=== PATIENT | female | born 1965 | race Asian ===

== ENCOUNTER 2017-01-27 19:55 | Emergency (ER) | payer BC ==
[~2017-01-27] VITALS: Ht 157.5 cm; Wt 48.1 kg
[~2017-01-27 19:55] MED LIST: NKM
[2017-01-27] MEDS ORDERED: Surgicel 4in x 8in TOPIC ONE ×2 (20:41→20:45)
[2017-01-27] MEDS ORDERED: Lidocaine 2% 20mg/ml/Epi 0.005mg/ml 20ml vial ONE (20:42)
[2017-01-27] MEDS ORDERED: Lidocaine 1% 10mg/ml/Epi 0.005mg/ml 30ml vial INJ ONE (20:45)
[2017-01-27] MEDS ORDERED: Bacitracin Oint UD TOPIC ONE (21:32)
[2017-01-27 21:46] VITALS: BP 155/55
[2017-01-27 21:51] VITALS: BP 142/78
--- NOTE | 2017-01-27 22:33 | Emergency Room Report ---
History of Present Illness General Chief Complaint: Laceration Source: Medical Record Present Illness HPI 51-year-old female presents to ED status post laceration to left ring finger. States that she actually cut her finger today while cleaning dishes. Tetanus unknown. Notes excessive bleeding despite applying pressure. Denies any other injuries. Denies pain. No aggravating relieving factors. 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 Review of Systems All Other Systems: negative except mentioned in HPI Physical Exam Vital Signs Date Time Temp Pulse Resp B/P Pulse Ox O2 Delivery O2 Flow Rate FiO2 01/27/17 20:04 97.9 64 16 155/55 99 Room Air Sp02 EP Interpretation: reviewed, normal General Appearance: no apparent distress, alert, GCS 15, non-toxic Head: normocephalic Eyes: bilateral eye PERRL, bilateral eye normal inspection ENT: normal ENT inspection Neck: normal inspection Respiratory: normal inspection Cardiovascular #1: normal inspection Gastrointestinal: normal inspection Rectal: deferred Genitourinary: no CVA tenderness Musculoskeletal: other - 1cm laceration to distal aspect L ring finger Neurologic: alert, oriented x3, responsive, motor strength/tone normal, sensory intact, speech normal Psychiatric: normal inspection Skin: normal inspection Lymphatic: normal inspection Procedures Laceration/Wound Repair Laceration/Wound Repair : Consent: Verbal Wound Location: upper extremity - L ring finger Wound's Depth, Shape: linear Wound Explored: clean Betadine Prep?: Yes Anesthesia: Lidocaine w/ Epi Wound Debrided: minimal Wound Repaired With: sutures Suture Size/Type: 5:0, proline Layer Closure?: No Sterile Dressing Applied?: Yes Splint Applied?: No Sling Applied?: No Patient Tolerated: Well Complications: None Medical Decision Making Diagnostic Impression: Primary Impression: Laceration ER Course Hospital Course 51-year-old F presents to ED s/p laceration L ring finger using knife Clinical course Patient placed on stretcher. After initial history and physical, digital provided with lidocaine. Laceration repaired w/o complication. Dressing applied. Patient declined TDAP at this time Diagnosis - laceration Stable and discharged to home. wound Care instructions given. Followup with PMD in 7 days for suture removal. Return to ED if any signs of infection develop Last Vital Signs Date Time Temp Pulse Resp B/P Pulse Ox O2 Delivery O2 Flow Rate FiO2 01/27/17 21:51 82 16 142/78 99 Room Air 01/27/17 21:46 97.9 Status: improved Disposition: HOME, SELF-CARE Condition: Stable Referrals: KOKI ANGEL (PCP) Patient Instructions: Laceration Care, Adult Additional Instructions: have sutures removed in 7 days. return to ED if any signs of infection LAURI BAUTISTA M.D. Jan 27, 2017 22:33
== END 2017-01-27 21:52 | disposition home or self-care (01) ==
LOC: EMR 20:34
DX: S61.215A Laceration without foreign body of left ring finger without damage to nail, initial encounter (principal); W26.0XXA Contact with knife, initial encounter; Y93.G1 Activity, food preparation and clean up; Y92.9 Unspecified place or not applicable; Z88.6 Allergy status to analgesic agent

== ENCOUNTER 2017-02-06 09:13 | Emergency (ER) | payer BC ==
[~2017-02-06] VITALS: Ht 157.5 cm; Wt 48.1 kg
[2017-02-06 10:06] VITALS: BP 110/75
--- NOTE | 2017-02-07 08:39 | Emergency Room Report ---
History of Present Illness General Chief Complaint: Wound Recheck/Suture Removal Source: Patient, Medical Record Present Illness HPI Patient presents for reevaluation of her laceration repair Patient has sutures in place in the left hand on the distal ring finger Patient reports that after the procedure she had bruising to the base of the finger Where the numbing medication was placed Patient also complains of pain along side the finger itself she feels that her finger is mildly flexed, but also has mildly increased discomfort with trying to fully extend the finger Patient denies any fevers denies any discharge Denies any other trauma Allergies: Coded Allergies: CODEINE (Unverified Allergy, Unknown, 01/10/15) Patient History Past Medical History: see triage record Pertinent Family History: none Last Menstrual Period: 01/09/2017 Now: No : 0 Para: 0 Reviewed Nursing Documentation: PMH: Agreed, PSxH: Agreed Nursing Documentation-PMH 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 The sutures appear well, no erythema, patient's finger is mildly flexed approximately 10, after further manipulation I am able to straighten the finger however the patient appears to have some discomfort with this, no signs of any erythema or fullness no signs of any fluctuance Neurologic: alert, oriented x3, responsive Skin: other - As above along with a small associated resolving hematoma from what appears to be a proximal digital block, Lymphatic: no adenopathy Procedures Splinting Splinting : Consent: Verbal Location: Left ring finger Pre-Made Type: finger splint Pre-Proc Neuro Vasc Exam: normal Post-Proc Neuro Vasc Exam: normal Patient Tolerated: Well Complications: None Medical Decision Making Diagnostic Impression: Primary Impression: Encounter for wound re-check ER Course Patient had one suture removed At this time two other sutures are remained in place There appears to be continued healing process, and did not want to cause dehiscence Patient's mild flexion of the finger does raise some concern, there is no obvious signs of tenosynovitis, or obvious abscess formation Patient also has verbalized discomfort in that finger Patient is 10 days out from the initial procedure at this time I did provide a splint for better alignment, I feel the patient is a candidate for hand specialty followup she was provided with information regarding that And reports that she will be seeing her primary physician as well the next one to 2 days Last Vital Signs Date Time Temp Pulse Resp B/P Pulse Ox O2 Delivery O2 Flow Rate FiO2 02/06/17 10:06 59 16 110/75 98 Room Air 02/06/17 09:18 98.1 Status: improved Disposition: HOME, SELF-CARE Condition: Improved Referrals: KOKI ANGEL (PCP) PAN WARD M.D. Patient Instructions: Wound Check Additional Instructions: One suture was removed at this time. The two other sutures are left in place as there appears to be continuing of the healing process. There is a mild flexion of her finger, which raises question of possible tendon involvement. It appears that we are able to straighten the finger with minimal manipulation. Close followup by your primary physician, and possibly hand specialty is recommended. NE SHEPPARD D.O. Feb 07, 2017 08:39
== END 2017-02-06 10:09 | disposition home or self-care (01) ==
LOC: EMR 09:53
DX: S61.214D Laceration without foreign body of right ring finger without damage to nail, subsequent encounter (principal); X58.XXXD Exposure to other specified factors, subsequent encounter; Z48.02 Encounter for removal of sutures; Z88.6 Allergy status to analgesic agent
CPT/HCPCS: 29280; 99282